=== PATIENT | female | born 1990 | race Caucasian/White ===

== ENCOUNTER 2017-06-24 12:22 | Inpatient (IN) | payer BC ==
[2017-06-24] MEDS ORDERED: Nalbuphine 20 MG/1 ML Amp IVPUSH PRN (12:58)
[2017-06-24] MEDS ORDERED: Ondansetron 4 MG/2 ML SDV IVPUSH PRN ×2 (12:58→13:20)
[2017-06-24] MEDS ORDERED: Sodium Chloride 0.9% 10 ML Syringe FLUSH PRN (12:58)
[2017-06-24] MEDS ORDERED: Oxytocin/Lactated Ringers 10 UNIT/1,000 ML BAG IV SCH ×2 (13:00→19:30)
--- NOTE | 2017-06-24 13:03 | PCM.LDHP ---
L&D History of Present Illness - General Date of Service: 06/24/17 Admit Problem/Dx: Patient Status Order with Admit Dx/Problem 06/24/17 12:58 Patient Status [ADT] Routine Admission Diagnosis/Problem Admission Diagnosis/Problem Spontaneous rupture of amniotic membranes Source of Information: Patient History Limitations: Reports: No Limitations - History of Present Illness Introduction:: Patient is a 27 y/o at 40 0/7 wks who presents for concerns of SROM. Occurred at about 0900 this AM. Doing well. Feeling some contractions. - Related Data Allergies/Adverse Reactions: Allergies Allergy/AdvReac Type Severity Reaction Status Date / Time No Known Allergies Allergy Verified 06/24/17 15:01 Home Medications: Home Meds Prenat Vit Comb.10/Iron/Fa/Dha [Vitafol-OB + DHA] 1 tab PO DAILY 06/24/17 [ History] Past Medical History - Past Health History Medical/Surgical History: Denies Medical/Surgical History [employer] History: Reports: : 2 Para: 1 LMP (Approximate): Social & Family History - Tobacco Use Smoking Status *Q: Never Smoker - Alcohol Use Alcohol Use History: No - Recreational Drug Use Recreational Drug Use: No H&P Review of Systems - Review of Systems: Review Of Systems: See Below General: Reports: No Symptoms Pulmonary: Reports: No Symptoms Cardiovascular: Reports: No Symptoms Gastrointestinal: Reports: No Symptoms Genitourinary: Reports: No Symptoms Musculoskeletal: Reports: No Symptoms Neurological: Reports: No Symptoms L&D Exam - Exam Exam: See Below - OB Specific Contraction Intensity: Moderate Movement: Active Heart Tones: Present Heart Tones per Min: 150 Heart Rate (FHR) Variability: Moderate (6-25 bmp) Presentation: Vertex - Augustin Score Augustin Score Cervix Position: Midposition Augustin Score Consistency: Soft Augustin Score Effacement: >80% Augustin Score Dilation: > 5 cm Augustin Score Infant's Station: -1 ,0 Augustin Score Total: 11 - Exam General: Alert, Oriented, Cooperative Lungs: Clear to Auscultation, Normal Respiratory Effort Cardiovascular: Regular Rate, Regular Rhythm GI/Abdominal Exam: Soft, Non-Tender Genitourinary: Normal external exam Extremities: Normal Inspection Skin: Warm, Dry, Intact - Patient Data Result Diagrams: 06/24/17 12:50 - Problem List (1) 40 weeks gestation of SNOMED Code(s): 30465998 ICD Code: Z3A.40 - 40 WEEKS GESTATION OF Status: Acute Current Visit: Yes (2) Spontaneous rupture of amniotic membranes SNOMED Code(s): 264094345 ICD Code: [id number] - Status: Acute Current Visit: Yes (3) Rh negative state in antepartum period SNOMED Code(s): 993802964 ICD Code: O09.899 - SUPERVISION OF OTHER HIGH RISK PREGNANCIES, UNSP TRIMESTER Status: Acute Current Visit: Yes Problem List Initiated/Reviewed/Updated: Yes Orders Last 24hrs: Active Orders 24 hr Category Date Time Status Patient Status [ADT] Routine ADT 06/24/17 12:58 Ordered Activity as Tolerated [RC] PFP Care 06/24/17 12:58 Ordered Communication Order [RC] ASDIRECTED Care 06/24/17 12:58 Ordered Heart Tones [RC] ASDIRECTED Care 06/24/17 13:00 Ordered Notify Provider [RC] PFP Care 06/24/17 12:58 Ordered Notify Provider [RC] PRN Care 06/24/17 12:58 Ordered Peripheral IV Care [RC] . DIRECTED Care 06/24/17 13:00 Ordered Vital Signs [RC] PER UNIT ROUTINE Care 06/24/17 12:58 Ordered Regular Diet [DIET] Diet 06/24/17 Lunch Ordered CBC W/O DIFF,HEMOGRAM [HEME] Routine Lab 06/24/17 12:58 Ordered TYPE AND SCREEN [BBK] Routine Lab 06/24/17 12:58 Ordered Lactated Ringers [Ringers, Lactated] 1,000 ml Med 06/24/17 13:00 Ordered IV ASDIRECTED Nalbuphine [Nubain] Med 06/24/17 12:58 Ordered 10 mg IVPUSH Q2H PRN Ondansetron [Zofran] Med 06/24/17 12:58 Ordered 4 mg IVPUSH Q4H PRN Oxytocin/Lactated Ringers [Pitocin in LR 10 Units/1,000 Med 06/24/17 13:00 Ordered ML] 10 unit in 1,000 ml IV .CONTINUOUS Sodium Chloride 0.9% [Saline Flush] Med 06/24/17 12:58 Ordered 10 ml FLUSH ASDIRECTED PRN Electronic Heart Tones Ext w TOCO [WOMSER] Oth 06/24/17 12:58 Ordered Routine Electronic Heart Tones Internal [WOMSER] Per Unit Oth 06/24/17 12:58 Ordered Routine Peripheral IV Insertion Adult [OM.PC] Routine Oth 06/24/17 12:58 Ordered Resuscitation Status Routine Resus Stat 06/24/17 12:58 Ordered Medication Orders Lactated Ringer's (Ringers, Lactated) 1,000 mls @ 100 mls/hr IV ASDIRECTED CASS Oxytocin/Lactated Ringer's (Pitocin In Lr 10 Units/1,000 Ml) 10 unit in 1,000 mls @ 500 mls/hr IV .CONTINUOUS CASS Nalbuphine HCl (Nubain) 10 mg IVPUSH Q2H PRN PRN Reason: Pain (moderate 4-6) Ondansetron HCl (Zofran) 4 mg IVPUSH Q4H PRN PRN Reason: Nausea/Vomiting Sodium Chloride (Saline Flush) 10 ml FLUSH ASDIRECTED PRN PRN Reason: Keep Vein Open Assessment/Plan Comment:: 27 y/o at 40 0/7 wks who presents with SROM * CBC and T&S * GBS negative, no need for antibiotics * Continue expectant management. Can add in pitocin if needed. * Pain management per patient preference * Anticipate
--- NOTE | 2017-06-24 13:11 | PCM.PREANE ---
Preanesthetic Assessment - Procedure Proposed Procedure: Labor epidural - Anesthesia/Transfusion/Family Hx Anesthesia History: Prior Anesthesia Without Reaction Family History of Anesthesia Reaction: No Transfusion History: No Prior Transfusion(s) - Review of Systems General: No Symptoms Pulmonary: No Symptoms Cardiovascular: No Symptoms Gastrointestinal: Other (GERD with ) Neurological: No Symptoms Other: Reports: None - Physical Assessment NPO Status Date: 06/24/17 NPO Status Time: 12:00 Pulse: 84 O2 Sat by Pulse Oximetry: 98 Respiratory Rate: 22 Blood Pressure: 121/76 Temperature: 36.9 C Height: 1.6 m Weight: 63.321 kg ASA Class: 2 Mental Status: Alert & Oriented x3 Airway Class: Mallampati = 1 Dentition: Reports: Normal Dentition Thyro-Mental Finger Breadths: 3 ROM/Head Extension: Full Lungs: Clear to Auscultation, Normal Respiratory Effort Cardiovascular: Regular Rate, Regular Rhythm, Murmurs (faint systolic murmer ) - Blood Blood Available: No Product(s) Available: None - Anesthesia Plan Pre-Op Medication Ordered: None - Acknowledgements Anesthesia Type Planned: Epidural Pt an Appropriate Candidate for the Planned Anesthesia: Yes Alternatives and Risks of Anesthesia Discussed w Pt/Guardian: Yes Pt/Guardian Understands and Agrees with Anesthesia Plan: Yes PreAnesthesia Questionnaire - CURRENT (IN HOUSE) MEDS Current Meds: Current Medications Lactated Ringer's (Ringers, Lactated) 1,000 mls @ 100 mls/hr IV ASDIRECTED CASS Oxytocin/Lactated Ringer's (Pitocin In Lr 10 Units/1,000 Ml) 10 unit in 1,000 mls @ 500 mls/hr IV .CONTINUOUS CASS Nalbuphine HCl (Nubain) 10 mg IVPUSH Q2H PRN PRN Reason: Pain (moderate 4-6) Ondansetron HCl (Zofran) 4 mg IVPUSH Q4H PRN PRN Reason: Nausea/Vomiting Sodium Chloride (Saline Flush) 10 ml FLUSH ASDIRECTED PRN PRN Reason: Keep Vein Open
[2017-06-24] MEDS ORDERED: diphenhydrAMINE 50 MG/ML SDV IVPUSH PRN (13:20)
[2017-06-24] MEDS ORDERED: ePHEDrine 50 MG/ML SDV IVPUSH PRN (13:20)
[2017-06-24] MEDS ORDERED: fentaNYL 100 MCG/2 ML SDV EPIDUR PRN (13:20)
[2017-06-24] MEDS ORDERED: Bupivacaine/fentaNYL/NS 100 ML Bag EPIDUR SCH (13:30)
[2017-06-24] MEDS: Lactated Ringers 1,000 ML IV SCH ×2 (20:11→21:24)
--- NOTE | 2017-06-25 00:10 | PCM.DEL ---
L & D Note - General Info Date of Service: 06/25/17 - Delivery Note Labor: Augmented by Oxytocin Delivery Outcome: Livebirth Delivery Method: Spontaneous Vaginal Delivery-Single Delivery Mode: Spontaneous Presentation: Right Occiput Anterior (CARLINE) Nuchal Cord: None Anesthesia Type: Epidural Amniotic Fluid Description: Clear Episiotomy Type: None Laceration: None Placenta: Intact, Spontaneous Cord: 3 Vessels Estimated Blood Loss: 200 Resuscitation Needed: Yes : Bulb Syringe, Stimulated, Warmed, [place] Used, Warmer Used Score 1 min: 8 Score 5 min: 9 Delivery Comments (Free Text/Narrative):: Patient found to be complete and began pushing. With maternal pushing effort head delivered from an CARLINE presentation. No nuchal cord present. shoulders did not immediately deliver after head emerged. Patient legs placed in deeper Clarence and head still did not delivery. McRobert's then done again and a hand placed on the posterior shoulder and clockwise pressure placed resulting in anterior shoulder rotating out from under the pubic bone. Delivery occurred. Cord clamped and cut. Baby handed to nursing staff for assessment. Cord blood obtained. Placenta allowed time to separate and expelled. Inspection of the perineum showed no lacerations. - Patient Data Vitals - Most Recent: Last Vital Signs Temp 36.9 C 06/24/17 13:12 Pulse 84 06/24/17 13:12 Resp 22 H 06/24/17 13:12 BP 121/76 06/24/17 13:12 Pulse Ox 98 06/24/17 13:12 Weight - Most Recent: 63.321 kg I&O - Last 24 Hours: Intake & Output 06/24/17 06/24/17 06/25/17 14:59 22:59 06:59 Intake Total 1000 Balance 1000 Lab Results Last 24 Hours: Laboratory Results - last 24 hr 06/24/17 06/24/17 Range/Units 12:50 12:50 WBC 15.10 H (3.98-10.04) K/mm3 RBC 3.94 L (3.98-5.22) M/mm3 Hgb 12.7 (11.2-15.7) gm/L Hct 36.6 (34.1-44.9) % MCV 92.9 (79.4-94.8) fl MCH 32.2 (25.6-32.2) pg MCHC 34.7 (32.2-35.5) g/dl RDW Std Deviation 44.9 (36.4-46.3) fL Plt Count 165 L (182-369) K/mm3 MPV 11.4 (9.4-12.3) fl Blood Type A NEGATIVE Gel Antibody Screen Negative Med Orders - Current: Current Medications Diphenhydramine HCl (Benadryl) 25 mg IVPUSH Q6H PRN PRN Reason: Pruritis Ephedrine Sulfate (Ephedrine Sulfate) 5 mg IVPUSH ASDIRECTED PRN PRN Reason: Hypotension Fentanyl (Sublimaze) 100 mcg EPIDUR Q3H PRN PRN Reason: Pain Last Admin: 06/24/17 21:29 Dose: 100 mcg Fentanyl/Bupivacaine HCl (Fentanyl/Bupivacaine/Ns 2 Mcg-0.125% 100 Ml) 100 ml EPIDUR ASDIRECTED CASS Last Admin: 06/24/17 21:29 Dose: 100 ml Lactated Ringer's (Ringers, Lactated) 1,000 mls @ 100 mls/hr IV ASDIRECTED CASS Last Admin: 06/24/17 21:24 Dose: 100 mls/hr Oxytocin/Lactated Ringer's (Pitocin In Lr 10 Units/1,000 Ml) 10 unit in 1,000 mls @ 500 mls/hr IV .CONTINUOUS CASS Oxytocin/Lactated Ringer's (Pitocin In Lr 10 Units/1,000 Ml) 10 unit in 1,000 mls @ 12 mls/hr IV TITRATE CASS; 2 MUNITS/MIN PRN Reason: Protocol Last Titration: 06/24/17 22:55 Dose: 9 munits/min, 54 mls/hr Nalbuphine HCl (Nubain) 10 mg IVPUSH Q2H PRN PRN Reason: Pain (moderate 4-6) Ondansetron HCl (Zofran) 4 mg IVPUSH Q4H PRN PRN Reason: Nausea/Vomiting Ondansetron HCl (Zofran) 4 mg IVPUSH ONETIME PRN PRN Reason: Nausea/Vomiting Sodium Chloride (Saline Flush) 10 ml FLUSH ASDIRECTED PRN PRN Reason: Keep Vein Open - Problem List & Annotations (1) 40 weeks gestation of SNOMED Code(s): 69957165 Code(s): Z3A.40 - 40 WEEKS GESTATION OF Status: Acute Current Visit: Yes (2) Spontaneous rupture of amniotic membranes SNOMED Code(s): 989164068 Code(s): KKQ1358 - Status: Acute Current Visit: Yes (3) Rh negative state in antepartum period SNOMED Code(s): 317003440 Code(s): O09.899 - SUPERVISION OF OTHER HIGH RISK PREGNANCIES, UNSP TRIMESTER Status: Acute Current Visit: Yes (4) Shoulder dystocia, delivered SNOMED Code(s): 757201804 Code(s): O66.0 - OBSTRUCTED LABOR DUE TO SHOULDER DYSTOCIA Status: Acute Current Visit: Yes (5) Vaginal delivery SNOMED Code(s): 271421958 Code(s): O80 - ENCOUNTER FOR FULL-TERM UNCOMPLICATED DELIVERY Status: Acute Current Visit: Yes - Problem List Review Problem List Initiated/Reviewed/Updated: Yes - My Orders Last 24 Hours: My Active Orders 06/24/17 12:58 Patient Status [ADT] Routine Activity as Tolerated [RC] PFP Communication Order [RC] ASDIRECTED Notify Provider [RC] PFP Notify Provider [RC] PRN Vital Signs [RC] 04,12,20 Nalbuphine [Nubain] 10 mg IVPUSH Q2H PRN Ondansetron [Zofran] 4 mg IVPUSH Q4H PRN Sodium Chloride 0.9% [Saline Flush] 10 ml FLUSH ASDIRECTED PRN Electronic Heart Tones Ext w TOCO [WOMSER] Routine Electronic Heart Tones Internal [WOMSER] Per Unit Routine Peripheral IV Insertion Adult [OM.PC] Routine Resuscitation Status Routine 06/24/17 13:00 Lactated Ringers [Ringers, Lactated] 1,000 ml IV ASDIRECTED Oxytocin/Lactated Ringers [Pitocin in LR 10 Units/1,000 ML] 10 unit in 1,000 ml IV .CONTINUOUS 06/24/17 19:30 Oxytocin/Lactated Ringers [Pitocin in LR 10 Units/1,000 ML] 10 unit in 1,000 ml IV TITRATE 06/24/17 23:39 Urinary Catheter Assessment [RC] ASDIRECTED 06/24/17 23:45 Insert Urinary Catheter [OM.PC] Q24H 06/24/17 Lunch Regular Diet [DIET] - Assessment Assessment:: 27 y/o G2 now P2002 now PPD#0 from at 40 1/ wks - Plan Plan:: * Routine cares * Encourage breast feeding * Discharge home in 1-2 days
[2017-06-25] MEDS ORDERED: Acetaminophen 325 MG Tab PO PRN (00:40)
[2017-06-25] MEDS ORDERED: Benzocaine/Menthol 20%-0.5% Spray 56 GM Canister TOP PRN (00:40)
[2017-06-25] MEDS ORDERED: Docusate Sodium 100 MG Cap PO PRN (00:40)
[2017-06-25] MEDS ORDERED: Witch Hazel Medicated Pads 100/Jar TOP PRN (00:40)
[2017-06-25] MEDS ORDERED: Lanolin 100% Cream 7 GM Tube TOP PRN (00:40)
--- NOTE | 2017-06-25 09:06 | PCM48HPAN ---
Post Anesthesia Note - EVALUATION WITHIN 48HRS OF ANESTHETIC Vital Signs in Normal Range: Yes Patient Participated in Evaluation: Yes Respiratory Function Stable: Yes Airway Patent: Yes Cardiovascular Function Stable: Yes Hydration Status Stable: Yes Pain Control Satisfactory: Yes Nausea and Vomiting Control Satisfactory: Yes Mental Status Recovered: Yes - COMMENTS/OBSERVATIONS Free Text/Narrative:: Nicolette has been up ambulating today. Denies any back pain and/or numbness and tingling. Denies headache. No further questions at this time.
[2017-06-25] MEDS: Ibuprofen 600 MG Tab PO PRN ×2 (10:00→23:33)
[2017-06-25] MEDS ORDERED: Bupivacaine 0.25% 10 ML SDV ONE (22:22)
--- NOTE | 2017-06-26 04:33 | PCM.PNPP ---
- General Info Date of Service: 06/26/17 Functional Status: Reports: Pain Controlled, Tolerating Diet, Ambulating, Urinating - Review of Systems General: Reports: No Symptoms Pulmonary: Reports: No Symptoms Cardiovascular: Reports: No Symptoms Gastrointestinal: Reports: No Symptoms Genitourinary: Reports: No Symptoms - Patient Data Vital Signs - Most Recent: Last Vital Signs Temp 36.6 C 06/25/17 20:20 Pulse 76 06/25/17 20:00 Resp 16 06/25/17 20:20 BP 101/57 L 06/25/17 20:20 Pulse Ox 100 06/25/17 20:00 Weight - Most Recent: 63.321 kg I&O - Last 24 Hours: Intake & Output 06/25/17 06/25/17 06/26/17 14:59 22:59 06:59 Intake Total 181 Balance 181 Lab Results - Last 24 Hours: Laboratory Results - last 24 hr 06/25/17 Range/Units 06:05 Blood Type Cancelled Gel Antibody Screen Cancelled Screen 1 ros/5 flds - neg RhIG Candidate? Yes Rhogam Indicated Cancelled Med Orders - Current: Current Medications Acetaminophen (Tylenol) 650 mg PO Q4H PRN PRN Reason: mild pain or fever Benzocaine/Menthol (Dermoplast Pain Relief [place]) 0 gm TOP ASDIRECTED PRN PRN Reason: Perineal Comfort Measure Last Admin: 06/25/17 02:24 Dose: 1 applic Docusate Sodium (Colace) 100 mg PO BID PRN PRN Reason: Constipation Emollient Ointment (Lansinoh Hpa) 0 gm TOP ASDIRECTED PRN PRN Reason: Sore Nipples Last Admin: 06/25/17 05:45 Dose: 1 applic Ibuprofen (Motrin) 600 mg PO Q6H PRN PRN Reason: Mild pain or fever Last Admin: 06/25/17 23:33 Dose: 600 mg Witch Digna (Tucks) 1 pad TOP ASDIRECTED PRN PRN Reason: Hemorrhoid pain Last Admin: 06/25/17 02:24 Dose: 1 applic Discontinued Medications Bupivacaine HCl (Sensorcaine-Mpf 0.25%) 10 ml .ROUTE .STK-MED ONE Stop: 06/25/17 22:23 Diphenhydramine HCl (Benadryl) 25 mg IVPUSH Q6H PRN PRN Reason: Pruritis Ephedrine Sulfate (Ephedrine Sulfate) 5 mg IVPUSH ASDIRECTED PRN PRN Reason: Hypotension Fentanyl (Sublimaze) 100 mcg EPIDUR Q3H PRN PRN Reason: Pain Last Admin: 06/24/17 21:29 Dose: 100 mcg Fentanyl/Bupivacaine HCl (Fentanyl/Bupivacaine/Ns 2 Mcg-0.125% 100 Ml) 100 ml EPIDUR ASDIRECTED CASS Last Admin: 06/24/17 21:29 Dose: 100 ml Lactated Ringer's (Ringers, Lactated) 1,000 mls @ 100 mls/hr IV ASDIRECTED CASS Last Admin: 06/24/17 21:24 Dose: 100 mls/hr Oxytocin/Lactated Ringer's (Pitocin In Lr 10 Units/1,000 Ml) 10 unit in 1,000 mls @ 500 mls/hr IV .CONTINUOUS CASS Oxytocin/Lactated Ringer's (Pitocin In Lr 10 Units/1,000 Ml) 10 unit in 1,000 mls @ 12 mls/hr IV TITRATE CASS; 2 MUNITS/MIN PRN Reason: Protocol Last Titration: 06/24/17 22:55 Dose: 9 munits/min, 54 mls/hr Nalbuphine HCl (Nubain) 10 mg IVPUSH Q2H PRN PRN Reason: Pain (moderate 4-6) Ondansetron HCl (Zofran) 4 mg IVPUSH Q4H PRN PRN Reason: Nausea/Vomiting Ondansetron HCl (Zofran) 4 mg IVPUSH ONETIME PRN PRN Reason: Nausea/Vomiting Sodium Chloride (Saline Flush) 10 ml FLUSH ASDIRECTED PRN PRN Reason: Keep Vein Open - Interaction Infant Disposition, : in Room with Family Infant Interaction: Holding Feeding: Breastfed Infant; Nursed Well, Continues to Breastfeed Support Person: - Recovery Exam Fundal Tone: Firm Fundal Level: 1 Fingerbreadths Below Umbilicus Fundal Placement: Midline Lochia Amount: Small Lochia Color: Rubra/Red Perineum Description: Intact, Minimal Bruising/Swelling Bladder Status: Voiding Urinary Elimination: Voided - Exam General: Alert, Oriented, Cooperative GI/Abdominal Exam: Soft, Non-Tender Extremities: Normal Inspection Skin: Warm, Dry, Intact - Problem List & Annotations (1) 40 weeks gestation of SNOMED Code(s): 56086698 Code(s): Z3A.40 - 40 WEEKS GESTATION OF Status: Acute Current Visit: Yes (2) Spontaneous rupture of amniotic membranes SNOMED Code(s): 302753166 Code(s): OUY5542 - Status: Acute Current Visit: Yes (3) Rh negative state in antepartum period SNOMED Code(s): 547460741 Code(s): O09.899 - SUPERVISION OF OTHER HIGH RISK PREGNANCIES, UNSP TRIMESTER Status: Acute Current Visit: Yes (4) Shoulder dystocia, delivered SNOMED Code(s): 879729675 Code(s): O66.0 - OBSTRUCTED LABOR DUE TO SHOULDER DYSTOCIA Status: Acute Current Visit: Yes (5) Vaginal delivery SNOMED Code(s): 785770030 Code(s): O80 - ENCOUNTER FOR FULL-TERM UNCOMPLICATED DELIVERY Status: Acute Current Visit: Yes - Problem List Review Problem List Initiated/Reviewed/Updated: Yes - My Orders Last 24 Hours: My Active Orders 06/25/17 Breakfast Regular Diet [DIET] 06/26/17 00:40 Heat Therapy [OM.PC] PRN - Assessment Assessment:: 27 y/o G2 now P2002 now PPD#1 from at 40 1/7 wks - Plan Plan:: * Routine cares * Encourage breast feeding * Discharge home today
--- NOTE | 2017-06-26 04:34 | PCM.DCSUM1 ---
Discharge Summary - Discharge Data Discharge Date: 06/26/17 Discharge Disposition: Home, Self-Care 01 Condition: Good - Discharge Diagnosis/Problem(s) (1) 40 weeks gestation of SNOMED Code(s): 60323088 ICD Code: Z3A.40 - 40 WEEKS GESTATION OF Status: Acute Current Visit: Yes (2) Spontaneous rupture of amniotic membranes SNOMED Code(s): 599413861 ICD Code: NSR5397 - Status: Acute Current Visit: Yes (3) Rh negative state in antepartum period SNOMED Code(s): 841152637 ICD Code: O09.899 - SUPERVISION OF OTHER HIGH RISK PREGNANCIES, UNSP TRIMESTER Status: Acute Current Visit: Yes (4) Shoulder dystocia, delivered SNOMED Code(s): 685912947 ICD Code: O66.0 - OBSTRUCTED LABOR DUE TO SHOULDER DYSTOCIA Status: Acute Current Visit: Yes (5) Vaginal delivery SNOMED Code(s): 424007570 ICD Code: O80 - ENCOUNTER FOR FULL-TERM UNCOMPLICATED DELIVERY Status: Acute Current Visit: Yes - Patient Summary/Data Complications: None Consults: None Recommended Follow-up Testing/Procedures: Follow up in 2-6 weeks for check Hospital Course: 27 y/o presented at 40 0/7 wks with SROM. She did require augmentation with pitocin. She progressed quickly then to complete dilation and underwent an notable for a short shoulder dystocia resolved mostly with McRobert's. See delivery note. she did well and was discharged home on PPD#1 - Patient Instructions Diet: Regular Diet as Tolerated Activity: As Tolerated Activity, Other: Pelvic Rest for 6 weeks Driving: May Drive Today Showering/Bathing: May Shower Showering/Bathing, Other: May Bathe Notify Provider of: Fever, Increased Pain, Swelling and Redness, Drainage, Nausea and/or Vomiting - Discharge Plan Home Medications: Home Meds Prenat Vit Comb.10/Iron/Fa/Dha [Vitafol-OB + DHA] 1 tab PO DAILY 06/24/17 [ History] Ibuprofen [IJD: Ibuprofen] 600 mg PO Q6H PRN tablet 06/25/17 [Rx] Referrals: Michelle Molina MD [Primary Care Provider] - (2-6 weeks for check ) - Discharge Summary/Plan Comment DC Time >30 min.: No - Patient Data Vitals - Most Recent: Last Vital Signs Temp 36.6 C 06/25/17 20:20 Pulse 76 06/25/17 20:00 Resp 16 06/25/17 20:20 BP 101/57 L 06/25/17 20:20 Pulse Ox 100 06/25/17 20:00 Weight - Most Recent: 63.321 kg I&O - Last 24 hours: Intake & Output 06/25/17 06/25/17 06/26/17 14:59 22:59 06:59 Intake Total 181 Balance 181 Lab Results - Last 24 hrs: Laboratory Results - last 24 hr 06/25/17 Range/Units 06:05 Blood Type Cancelled Gel Antibody Screen Cancelled Screen 1 ros/5 flds - neg RhIG Candidate? Yes Rhogam Indicated Cancelled Med Orders - Current: Current Medications Acetaminophen (Tylenol) 650 mg PO Q4H PRN PRN Reason: mild pain or fever Benzocaine/Menthol (Dermoplast Pain Relief [place]) 0 gm TOP ASDIRECTED PRN PRN Reason: Perineal Comfort Measure Last Admin: 06/25/17 02:24 Dose: 1 applic Docusate Sodium (Colace) 100 mg PO BID PRN PRN Reason: Constipation Emollient Ointment (Lansinoh Hpa) 0 gm TOP ASDIRECTED PRN PRN Reason: Sore Nipples Last Admin: 06/25/17 05:45 Dose: 1 applic Ibuprofen (Motrin) 600 mg PO Q6H PRN PRN Reason: Mild pain or fever Last Admin: 06/25/17 23:33 Dose: 600 mg Witch Digna (Tucks) 1 pad TOP ASDIRECTED PRN PRN Reason: Hemorrhoid pain Last Admin: 06/25/17 02:24 Dose: 1 applic Discontinued Medications Bupivacaine HCl (Sensorcaine-Mpf 0.25%) 10 ml .ROUTE .STK-MED ONE Stop: 06/25/17 22:23 Diphenhydramine HCl (Benadryl) 25 mg IVPUSH Q6H PRN PRN Reason: Pruritis Ephedrine Sulfate (Ephedrine Sulfate) 5 mg IVPUSH ASDIRECTED PRN PRN Reason: Hypotension Fentanyl (Sublimaze) 100 mcg EPIDUR Q3H PRN PRN Reason: Pain Last Admin: 06/24/17 21:29 Dose: 100 mcg Fentanyl/Bupivacaine HCl (Fentanyl/Bupivacaine/Ns 2 Mcg-0.125% 100 Ml) 100 ml EPIDUR ASDIRECTED CASS Last Admin: 06/24/17 21:29 Dose: 100 ml Lactated Ringer's (Ringers, Lactated) 1,000 mls @ 100 mls/hr IV ASDIRECTED CASS Last Admin: 06/24/17 21:24 Dose: 100 mls/hr Oxytocin/Lactated Ringer's (Pitocin In Lr 10 Units/1,000 Ml) 10 unit in 1,000 mls @ 500 mls/hr IV .CONTINUOUS CASS Oxytocin/Lactated Ringer's (Pitocin In Lr 10 Units/1,000 Ml) 10 unit in 1,000 mls @ 12 mls/hr IV TITRATE CASS; 2 MUNITS/MIN PRN Reason: Protocol Last Titration: 06/24/17 22:55 Dose: 9 munits/min, 54 mls/hr Nalbuphine HCl (Nubain) 10 mg IVPUSH Q2H PRN PRN Reason: Pain (moderate 4-6) Ondansetron HCl (Zofran) 4 mg IVPUSH Q4H PRN PRN Reason: Nausea/Vomiting Ondansetron HCl (Zofran) 4 mg IVPUSH ONETIME PRN PRN Reason: Nausea/Vomiting Sodium Chloride (Saline Flush) 10 ml FLUSH ASDIRECTED PRN PRN Reason: Keep Vein Open *Q Meaningful Use (DIS) - VTE *Q VTE Criteria *Q: - Stroke *Q Stroke Criteria *Q: - AMI *Q AMI Criteria *Q:
[2017-06-26] MEDS: Ibuprofen 600 MG Tab PO PRN (05:04)
== END 2017-06-26 10:00 | disposition home or self-care (01) | DRG 560 ==
LOC: JD.OB 12:22 → JD.OBCHECK 12:22 → JD.OB 12:58 → JD.MS 06-25 → OBSVTOIN 06-25 → JD.OB 06-25 12:29
PROVIDERS: ADMIT Obstetrics & Gynecology; ATTEND Obstetrics & Gynecology
PROC: 00HU33Z Insertion of Infusion Device into Spinal Canal, Percutaneous Approach (ICD-10-PCS; 2017-06-24)
PROC: 3E0R3BZ Introduction of Anesthetic Agent into Spinal Canal, Percutaneous Approach (ICD-10-PCS; 2017-06-24)
PROC: 10E0XZZ Delivery of Products of Conception, External Approach (ICD-10-PCS; principal; 2017-06-25)
DX: O42.02 Full-term premature rupture of membranes, onset of labor within 24 hours of rupture (principal); Z3A.40 40 weeks gestation of pregnancy; Z37.0 Single live birth; O66.0 Obstructed labor due to shoulder dystocia
CPT/HCPCS: 01967; 36415; 51701; 59409; 85027; 85461; 86850; 86900; 86901; A9270-GY; J2590; J2790; J3010; J7120

== ENCOUNTER 2019-01-09 07:05 | Inpatient (IN) | payer BC ==
[2019-01-09] MEDS ORDERED: Sodium Chloride 0.9% 10 ML Syringe FLUSH PRN (08:04)
[2019-01-09] MEDS ORDERED: Nalbuphine 20 MG/ML 1 ML Syringe IVPUSH PRN (08:04)
[2019-01-09] MEDS ORDERED: Ondansetron 4 MG/2 ML SDV IVPUSH PRN (08:04)
[2019-01-09] MEDS ORDERED: Penicillin G Potassium 5 MILLUNITS in Sodium Chloride 0.9% 100 ML IV SCH (08:15)
[2019-01-09] MEDS ORDERED: Oxytocin/Lactated Ringers 10 UNIT/1,000 ML BAG IV SCH ×2 (08:15)
[2019-01-09] MEDS: Lactated Ringers 1,000 ML IV SCH ×3 (08:51→18:48)
--- NOTE | 2019-01-09 09:59 | PCM.LDHP ---
L&D History of Present Illness - General Date of Service: 01/09/19 Admit Problem/Dx: Patient Status Order with Admit Dx/Problem 01/09/19 08:05 Patient Status [ADT] Routine Admission Diagnosis/Problem Admission Diagnosis/Problem Normal in third trimester Source of Information: Patient History Limitations: Reports: No Limitations - History of Present Illness Introduction:: Patient is a 28 y/o at 40 6/7 wks who presents for IOL for dates. Doing well today. No significant contractions. No other issues - Related Data Allergies/Adverse Reactions: Allergies Allergy/AdvReac Type Severity Reaction Status Date / Time No Known Allergies Allergy Verified 06/24/17 15:01 Home Medications: Home Meds . 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: 2 LMP (Approximate): - Past Surgical History Dermatological Surgical History: Reports: Other (See Below) Social & Family History - Family History Family Medical History: Noncontributory - Tobacco Use Smoking Status *Q: Never Smoker Second Hand Smoke Exposure: No - Caffeine Use Caffeine Use: Reports: None - Alcohol Use Alcohol Use History: No - Recreational Drug Use Recreational Drug Use: No H&P Review of Systems - Review of Systems: Review Of Systems: See Below General: Reports: No Symptoms Pulmonary: Reports: No Symptoms Cardiovascular: Reports: No Symptoms Gastrointestinal: Reports: No Symptoms Genitourinary: Reports: No Symptoms Musculoskeletal: Reports: No Symptoms Psychiatric: Reports: No Symptoms Neurological: Reports: No Symptoms L&D Exam - Exam Exam: See Below - Vital Signs Vital Signs: Last Vital Signs Temp 37.2 C 01/09/19 08:50 Pulse 63 01/09/19 08:50 Resp 16 01/09/19 08:50 BP 114/72 01/09/19 08:50 Pulse Ox Weight: 65.726 kg - OB Specific Contraction Intensity: Irritability Movement: Active Heart Tones: Present Heart Tones per Min: 140 Heart Rate (FHR) Variability: Moderate (6-25 bmp) Presentation: Vertex - Exam General: Alert, Oriented, Cooperative Lungs: Clear to Auscultation, Normal Respiratory Effort Cardiovascular: Regular Rate, Regular Rhythm GI/Abdominal Exam: Soft, Non-Tender Genitourinary: Normal external exam Extremities: Normal Inspection Skin: Warm, Dry, Intact - Patient Data Lab Results Last 24 hrs: Laboratory Results - last 24 hr 01/09/19 01/09/19 Range/Units 08:30 08:30 WBC 11.35 H (3.98-10.04) K/mm3 RBC 4.27 (3.98-5.22) M/mm3 Hgb 13.7 (11.2-15.7) gm/L Hct 40.1 (34.1-44.9) % MCV 93.9 (79.4-94.8) fl MCH 32.1 (25.6-32.2) pg MCHC 34.2 (32.2-35.5) g/dl RDW Std Deviation 45.1 (36.4-46.3) fL Plt Count 137 L (182-369) K/mm3 MPV 11.3 (9.4-12.3) fl Blood Type A NEGATIVE Gel Antibody Screen Negative Result Diagrams: 01/09/19 08:30 - Problem List (1) Postmaturity , 40-42 weeks gestation SNOMED Code(s): 75951608, 940010285 ICD Code: O48.0 - POST-TERM Status: Acute Current Visit: Yes (2) GBS (group B Streptococcus carrier), +RV culture, currently SNOMED Code(s): 1816726496120, 241481233, 2360921964732 ICD Code: O99.820 - STREPTOCOCCUS B CARRIER STATE COMPLICATING Status: Acute Current Visit: Yes (3) Rh negative state in antepartum period SNOMED Code(s): 969984392 ICD Code: O09.899 - SUPERVISION OF OTHER HIGH RISK PREGNANCIES, UNSP TRIMESTER Status: Acute Current Visit: No Problem List Initiated/Reviewed/Updated: Yes Orders Last 24hrs: Active Orders 24 hr Category Date Time Status Patient Status [ADT] Routine ADT 01/09/19 08:05 Active Communication Order [RC] ASDIRECTED Care 01/09/19 08:05 Active Communication Order [RC] ASDIRECTED Care 01/09/19 08:05 Active Communication Order [RC] ASDIRECTED Care 01/09/19 08:05 Active Heart Tones [RC] ASDIRECTED Care 01/09/19 08:05 Active Monitoring [RC] INTERMITTENT Care 01/09/19 08:05 Active Non Stress Test [RC] PER UNIT ROUTINE Care 01/09/19 08:05 Active Notify Provider [RC] ASDIRECTED Care 01/09/19 08:05 Active Notify Provider [RC] PRN Care 01/09/19 08:05 Active Peripheral IV Care [RC] . DIRECTED Care 01/09/19 08:05 Active Up ad Rocio [RC] ASDIRECTED Care 01/09/19 08:05 Active Vaginal Exam [RC] ASDIRECTED Care 01/09/19 08:05 Active Vital Signs [RC] ASDIRECTED Care 01/09/19 08:05 Active Vital Signs [RC] PER UNIT ROUTINE Care 01/09/19 08:05 Active Regular Diet [DIET] Diet 01/09/19 Breakfast Active RAPID PLASMA REAGIN,RPR [CHEM] Routine Lab 01/09/19 08:30 Received Lactated Ringers [Ringers, Lactated] 1,000 ml Med 01/09/19 08:15 Active IV ASDIRECTED Nalbuphine [Nubain] Med 01/09/19 08:04 Active 10 mg IVPUSH Q2H PRN Ondansetron [Zofran] Med 01/09/19 08:04 Active 4 mg IVPUSH Q4H PRN Oxytocin/Lactated Ringers [Pitocin in LR 10 Units/1,000 Med 01/09/19 08:15 Active ML] 10 unit in 1,000 ml IV .CONTINUOUS Oxytocin/Lactated Ringers [Pitocin in LR 10 Units/1,000 Med 01/09/19 08:15 Active ML] 10 unit in 1,000 ml IV TITRATE Penicillin G Potassium [Pfizerpen] 2.5 millunits Med 01/09/19 12:00 Active Sodium Chloride 0.9% [Normal Saline] 100 ml IV Q4H Penicillin G Potassium [Pfizerpen] 5 millunits Med 01/09/19 08:15 Active Sodium Chloride 0.9% [Normal Saline] 100 ml IV ONETIME Sodium Chloride 0.9% [Saline Flush] Med 01/09/19 08:04 Active 10 ml FLUSH ASDIRECTED PRN Electronic Heart Tones Ext w TOCO [WOMSER] Oth 01/09/19 08:05 Ordered Routine Electronic Heart Tones Internal [WOMSER] Per Unit Oth 01/09/19 08:05 Ordered Routine Peripheral IV Insertion Adult [OM.PC] Routine Oth 01/09/19 08:05 Ordered Resuscitation Status Routine Resus Stat 01/09/19 08:04 Ordered Medication Orders Lactated Ringer's (Ringers, Lactated) 1,000 mls @ 40 mls/hr IV ASDIRECTED CASS Last Admin: 01/09/19 08:51 Dose: 40 mls/hr Oxytocin/Lactated Ringer's (Pitocin In Lr 10 Units/1,000 Ml) 10 unit in 1,000 mls @ 12 mls/hr IV TITRATE CASS; Protocol Oxytocin/Lactated Ringer's (Pitocin In Lr 10 Units/1,000 Ml) 10 unit in 1,000 mls @ 500 mls/hr IV .CONTINUOUS CASS Penicillin G Potassium 5 (millunits/ Sodium Chloride) 100 mls @ 55 mls/hr IV ONETIME CASS Last Admin: 01/09/19 08:45 Dose: 100 mls/hr Penicillin G Potassium 2.5 (millunits/ Sodium Chloride) 100 mls @ 55 mls/hr IV Q4H CASS Nalbuphine HCl (Nubain) 10 mg IVPUSH Q2H PRN PRN Reason: pain Ondansetron HCl (Zofran) 4 mg IVPUSH Q4H PRN PRN Reason: Nausea/Vomiting Sodium Chloride (Saline Flush) 10 ml FLUSH ASDIRECTED PRN PRN Reason: Keep Vein Open Assessment/Plan Comment:: 28 y/o at 40 6/7 wks who presents for IOL for dates * Labs * GBS positive, will start PCN for prophylaxis * Pitocin/AROM for IOL * RH negative, will asses need for Rhogam following delivery * Pain management per patient preference * Anticipate
[2019-01-09] MEDS: Penicillin G Potassium 2.5 MILLUNITS in Sodium Chloride 0.9% 100 ML IV SCH ×3 (12:34→20:28)
--- NOTE | 2019-01-09 13:01 | PCM.PNLD ---
Labor Progress Note - VS & Meds Vital Signs: Last Vital Signs Temp 37.2 C 01/09/19 08:50 Pulse 63 01/09/19 08:50 Resp 16 01/09/19 08:50 BP 114/72 01/09/19 08:50 Pulse Ox Active Medications: Current Medications Lactated Ringer's (Ringers, Lactated) 1,000 mls @ 40 mls/hr IV ASDIRECTED CASS Last Admin: 01/09/19 08:51 Dose: 40 mls/hr Oxytocin/Lactated Ringer's (Pitocin In Lr 10 Units/1,000 Ml) 10 unit in 1,000 mls @ 12 mls/hr IV TITRATE CASS; Protocol Last Admin: 01/09/19 11:42 Dose: 2 munits/min, 12 mls/hr Oxytocin/Lactated Ringer's (Pitocin In Lr 10 Units/1,000 Ml) 10 unit in 1,000 mls @ 500 mls/hr IV .CONTINUOUS CASS Penicillin G Potassium 5 (millunits/ Sodium Chloride) 100 mls @ 55 mls/hr IV ONETIME CASS Last Admin: 01/09/19 08:45 Dose: 100 mls/hr Penicillin G Potassium 2.5 (millunits/ Sodium Chloride) 100 mls @ 55 mls/hr IV Q4H CASS Nalbuphine HCl (Nubain) 10 mg IVPUSH Q2H PRN PRN Reason: pain Ondansetron HCl (Zofran) 4 mg IVPUSH Q4H PRN PRN Reason: Nausea/Vomiting Sodium Chloride (Saline Flush) 10 ml FLUSH ASDIRECTED PRN PRN Reason: Keep Vein Open - Uterine Contractions Uterine Monitoring Mode: External [place] Contraction Intensity: Mild to Moderate Uterine Resting Tone: Soft - Monitoring Monitor Mode: External Ultrasound Heart Rate (FHR) Baseline: 140 Heart Rate (FHR) Variability: Moderate (6-25 bmp) Accelerations: Present, 15x15 Decelerations: None Strip Review: Category I - Vaginal Exam Dilation (cm): 2 Effacement (Percent): 75 Station: -2 Cervical Position: Midposition - Labor Progress (Free Text) Labor Progress: Doing well. On 6 of pitoicin. S/p 2 doses of PCN. AROM performed with release of clear fluid. Continue present management.
--- NOTE | 2019-01-09 17:19 | PCM.PNLD ---
Labor Progress Note - VS & Meds Vital Signs: Last Vital Signs Temp 37.2 C 01/09/19 08:50 Pulse 63 01/09/19 08:50 Resp 16 01/09/19 08:50 BP 114/72 01/09/19 08:50 Pulse Ox Active Medications: Current Medications Lactated Ringer's (Ringers, Lactated) 1,000 mls @ 40 mls/hr IV ASDIRECTED CASS Last Admin: 01/09/19 08:51 Dose: 40 mls/hr Oxytocin/Lactated Ringer's (Pitocin In Lr 10 Units/1,000 Ml) 10 unit in 1,000 mls @ 12 mls/hr IV TITRATE CASS; Protocol Last Titration: 01/09/19 12:45 Dose: 6 munits/min, 36 mls/hr Oxytocin/Lactated Ringer's (Pitocin In Lr 10 Units/1,000 Ml) 10 unit in 1,000 mls @ 500 mls/hr IV .CONTINUOUS CASS Penicillin G Potassium 5 (millunits/ Sodium Chloride) 100 mls @ 55 mls/hr IV ONETIME CASS Last Admin: 01/09/19 08:45 Dose: 100 mls/hr Penicillin G Potassium 2.5 (millunits/ Sodium Chloride) 100 mls @ 55 mls/hr IV Q4H CASS Last Admin: 01/09/19 12:34 Dose: 55 mls/hr Nalbuphine HCl (Nubain) 10 mg IVPUSH Q2H PRN PRN Reason: pain Ondansetron HCl (Zofran) 4 mg IVPUSH Q4H PRN PRN Reason: Nausea/Vomiting Sodium Chloride (Saline Flush) 10 ml FLUSH ASDIRECTED PRN PRN Reason: Keep Vein Open - Uterine Contractions Uterine Monitoring Mode: External [place] Contraction Intensity: Moderate Uterine Resting Tone: Soft - Monitoring Monitor Mode: External Ultrasound Heart Rate (FHR) Baseline: 135 Heart Rate (FHR) Variability: Moderate (6-25 bmp) Accelerations: Present, 15x15 Decelerations: None Strip Review: Category I - Vaginal Exam Dilation (cm): 4 Effacement (Percent): 85 Station: 1 Cervical Position: Midposition - Labor Progress (Free Text) Labor Progress: Patient doing well. on 8 of pitocin. Rates contractions as an /. Continue present management.
[2019-01-09] MEDS ORDERED: fentaNYL 100 MCG/2 ML SDV ONE (17:54)
[2019-01-09] MEDS ORDERED: diphenhydrAMINE 50 MG/ML SDV IVPUSH PRN (18:09)
[2019-01-09] MEDS ORDERED: fentaNYL 100 MCG/2 ML SDV EPIDUR PRN (18:09)
[2019-01-09] MEDS ORDERED: ePHEDrine 50 MG/ML SDV IVPUSH PRN (18:09)
[2019-01-09] MEDS ORDERED: fentaNYL/Bupivacaine-NS 2 MCG/ML-0.125%/PF 100 ML Bag EPIDUR PRN (18:09)
--- NOTE | 2019-01-09 18:32 | PCM.PREANE ---
Preanesthetic Assessment - Procedure Proposed Procedure: [place] - Anesthesia/Transfusion/Family Hx Anesthesia History: No Prior Anesthesia Family History of Anesthesia Reaction: No Transfusion History: No Prior Transfusion(s) - Review of Systems General: No Symptoms Pulmonary: No Symptoms Cardiovascular: No Symptoms Gastrointestinal: No Symptoms Neurological: No Symptoms Other: Reports: None - Physical Assessment Respiratory Rate: 16 Vital Signs: Last Vital Signs Temp 98.9 F 01/09/19 08:50 Pulse 63 01/09/19 08:50 Resp 16 01/09/19 08:50 BP 114/72 01/09/19 08:50 Pulse Ox Height: 5 ft 3 in Weight: 65.726 kg ASA Class: 2 Mental Status: Alert & Oriented x3 Airway Class: Mallampati = 1 Dentition: Reports: Normal Dentition Thyro-Mental Finger Breadths: 3 Mouth Opening Finger Breadths: 3 ROM/Head Extension: Full Lungs: Clear to Auscultation, Normal Respiratory Effort Cardiovascular: Regular Rate, Regular Rhythm - Lab Values: Laboratory Last Values WBC 11.35 K/mm3 (3.98-10.04) H 01/09/19 08:30 RBC 4.27 M/mm3 (3.98-5.22) 01/09/19 08:30 Hgb 13.7 gm/L (11.2-15.7) 01/09/19 08:30 Hct 40.1 % (34.1-44.9) 01/09/19 08:30 MCV 93.9 fl (79.4-94.8) 01/09/19 08:30 MCH 32.1 pg (25.6-32.2) 01/09/19 08:30 MCHC 34.2 g/dl (32.2-35.5) 01/09/19 08:30 RDW Std Deviation 45.1 fL (36.4-46.3) 01/09/19 08:30 Plt Count 137 K/mm3 (182-369) L 01/09/19 08:30 MPV 11.3 fl (9.4-12.3) 01/09/19 08:30 Blood Type A NEGATIVE 01/09/19 08:30 Gel Antibody Screen Negative 01/09/19 08:30 - Allergies Allergies/Adverse Reactions: Allergies Allergy/AdvReac Type Severity Reaction Status Date / Time No Known Allergies Allergy Verified 06/24/17 15:01 - Blood Blood Available: No - Acknowledgements Anesthesia Type Planned: Epidural Pt an Appropriate Candidate for the Planned Anesthesia: Yes Alternatives and Risks of Anesthesia Discussed w Pt/Guardian: Yes Pt/Guardian Understands and Agrees with Anesthesia Plan: Yes PreAnesthesia Questionnaire - Past Health History Medical/Surgical History: Denies Medical/Surgical History Cardiovascular History: Reports: None Respiratory History: Reports: None Gastrointestinal History: Reports: None 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 [No Known Home Meds] 01/09/19 [History] - CURRENT (IN HOUSE) MEDS Current Meds: Current Medications Diphenhydramine HCl (Benadryl) 25 mg IVPUSH Q6H PRN PRN Reason: pruritis Ephedrine Sulfate (Ephedrine Sulfate) 5 mg IVPUSH ASDIRECTED PRN PRN Reason: Hypotension Fentanyl (Sublimaze) 100 mcg EPIDUR Q3H PRN PRN Reason: Pain Last Admin: 01/09/19 18:30 Dose: 100 mcg Fentanyl/Bupivacaine HCl (Bztwssuk-Ucmxo-Ml 2 Mcg/Ml-0.125%) 100 ml EPIDUR ONETIME PRN PRN Reason: Pain Last Admin: 01/09/19 18:29 Dose: 100 ml Lactated Ringer's (Ringers, Lactated) 1,000 mls @ 40 mls/hr IV ASDIRECTED CASS Last Admin: 01/09/19 08:51 Dose: 40 mls/hr Oxytocin/Lactated Ringer's (Pitocin In Lr 10 Units/1,000 Ml) 10 unit in 1,000 mls @ 12 mls/hr IV TITRATE CASS; Protocol Last Titration: 01/09/19 12:45 Dose: 6 munits/min, 36 mls/hr Oxytocin/Lactated Ringer's (Pitocin In Lr 10 Units/1,000 Ml) 10 unit in 1,000 mls @ 500 mls/hr IV .CONTINUOUS CASS Penicillin G Potassium 5 (millunits/ Sodium Chloride) 100 mls @ 55 mls/hr IV ONETIME [facility] Last Admin: 01/09/19 08:45 Dose: 100 mls/hr Penicillin G Potassium 2.5 (millunits/ Sodium Chloride) 100 mls @ 55 mls/hr IV Q4H [facility] Last Admin: 01/09/19 12:34 Dose: 55 mls/hr Nalbuphine HCl (Nubain) 10 mg IVPUSH Q2H PRN PRN Reason: pain Ondansetron HCl (Zofran) 4 mg IVPUSH Q4H PRN PRN Reason: Nausea/Vomiting Sodium Chloride (Saline Flush) 10 ml FLUSH ASDIRECTED PRN PRN Reason: Keep Vein Open Discontinued Medications Fentanyl (Sublimaze) Confirm Administered Dose 100 mcg .ROUTE .[facility] Stop: 01/09/19 17:55
--- NOTE | 2019-01-09 21:10 | PCM.DEL ---
L & D Note - General Info Date of Service: 01/09/19 - Delivery Note Labor: Induced by ARM, Induced by Oxytocin Delivery Outcome: Livebirth Infant Delivery Method: Spontaneous Vaginal Delivery-Single Infant Delivery Mode: Spontaneous Presentation: Left Occiput Anterior (DASHA) Nuchal Cord: None Anesthesia Type: Epidural Amniotic Fluid Description: Clear Episiotomy Type: None Laceration: None Placenta: Intact, Spontaneous Cord: 3 Vessels Estimated Blood Loss: 100 : Bulb Syringe, Stimulated, Warmed, [place] Used Delivery Comments (Free Text/Narrative):: Patient found to be complete and began pushing. With maternal pushing effort head delivered from an DASHA presentation. No nuchal cord present. With gentle downward traction the shoulders and body delivered. placed on maternal abdomen. Cord clamped and cut. Cord blood obtained. Placenta allowed time to separate and expelled intact. Inspection of the perineum showed no lacerations - General Info Date of Service: 01/09/19 - Patient Data Vitals - Most Recent: Last Vital Signs Temp 37.2 C 01/09/19 08:50 Pulse 63 01/09/19 08:50 Resp 16 01/09/19 18:32 BP 114/72 01/09/19 08:50 Pulse Ox Weight - Most Recent: 65.726 kg I&O - Last 24 Hours: Intake & Output 01/09/19 01/09/19 01/09/19 06:59 14:59 22:59 Intake Total 4050 Output Total 1100 Balance 2950 Lab Results Last 24 Hours: Laboratory Results - last 24 hr 01/09/19 01/09/19 Range/Units 08:30 08:30 WBC 11.35 H (3.98-10.04) K/mm3 RBC 4.27 (3.98-5.22) M/mm3 Hgb 13.7 (11.2-15.7) gm/L Hct 40.1 (34.1-44.9) % MCV 93.9 (79.4-94.8) fl MCH 32.1 (25.6-32.2) pg MCHC 34.2 (32.2-35.5) g/dl RDW Std Deviation 45.1 (36.4-46.3) fL Plt Count 137 L (182-369) K/mm3 MPV 11.3 (9.4-12.3) fl Blood Type A NEGATIVE Gel Antibody Screen Negative Med Orders - Current: Current Medications Diphenhydramine HCl (Benadryl) 25 mg IVPUSH Q6H PRN PRN Reason: pruritis Ephedrine Sulfate (Ephedrine Sulfate) 5 mg IVPUSH ASDIRECTED PRN PRN Reason: Hypotension Fentanyl (Sublimaze) 100 mcg EPIDUR Q3H PRN PRN Reason: Pain Last Admin: 01/09/19 18:30 Dose: 100 mcg Fentanyl/Bupivacaine HCl (Zhavcyno-Idonl-Nl 2 Mcg/Ml-0.125%) 100 ml EPIDUR ONETIME PRN PRN Reason: Pain Last Admin: 01/09/19 18:29 Dose: 100 ml Lactated Ringer's (Ringers, Lactated) 1,000 mls @ 40 mls/hr IV ASDIRECTED CASS Last Admin: 01/09/19 18:48 Dose: 999 mls/hr Oxytocin/Lactated Ringer's (Pitocin In Lr 10 Units/1,000 Ml) 10 unit in 1,000 mls @ 12 mls/hr IV TITRATE CASS; Protocol Last Titration: 01/09/19 20:56 Dose: 500 mls/hr Oxytocin/Lactated Ringer's (Pitocin In Lr 10 Units/1,000 Ml) 10 unit in 1,000 mls @ 500 mls/hr IV .CONTINUOUS CASS Penicillin G Potassium 5 (millunits/ Sodium Chloride) 100 mls @ 55 mls/hr IV ONETIME CASS Last Admin: 01/09/19 08:45 Dose: 100 mls/hr Penicillin G Potassium 2.5 (millunits/ Sodium Chloride) 100 mls @ 55 mls/hr IV Q4H CASS Last Admin: 01/09/19 20:28 Dose: 55 mls/hr Nalbuphine HCl (Nubain) 10 mg IVPUSH Q2H PRN PRN Reason: pain Ondansetron HCl (Zofran) 4 mg IVPUSH Q4H PRN PRN Reason: Nausea/Vomiting Sodium Chloride (Saline Flush) 10 ml FLUSH ASDIRECTED PRN PRN Reason: Keep Vein Open Discontinued Medications Fentanyl (Sublimaze) Confirm Administered Dose 100 mcg .ROUTE .[facility] ONE Stop: 01/09/19 17:55 Last Admin: 01/09/19 18:45 Dose: Not Given - Problem List & Annotations (1) Postmaturity , 40-42 weeks gestation SNOMED Code(s): 28631730, 277480635 Code(s): O48.0 - POST-TERM Status: Acute Current Visit: Yes (2) GBS (group B Streptococcus carrier), +RV culture, currently SNOMED Code(s): 8864358852868, 960995726, 6247703332945 Code(s): O99.820 - STREPTOCOCCUS B CARRIER STATE COMPLICATING Status: Acute Current Visit: Yes (3) Rh negative state in antepartum period SNOMED Code(s): 923871068 Code(s): O09.899 - SUPERVISION OF OTHER HIGH RISK PREGNANCIES, UNSP TRIMESTER Status: Acute Current Visit: No (4) Vaginal delivery SNOMED Code(s): 927557084 Code(s): O80 - ENCOUNTER FOR FULL-TERM UNCOMPLICATED DELIVERY Status: Acute Current Visit: Yes - Problem List Review Problem List Initiated/Reviewed/Updated: Yes - My Orders Last 24 Hours: My Active Orders 01/09/19 08:04 Nalbuphine [Nubain] 10 mg IVPUSH Q2H PRN Ondansetron [Zofran] 4 mg IVPUSH Q4H PRN Sodium Chloride 0.9% [Saline Flush] 10 ml FLUSH ASDIRECTED PRN Resuscitation Status Routine 01/09/19 08:05 Patient Status [ADT] Routine Communication Order [RC] ASDIRECTED Communication Order [RC] ASDIRECTED Communication Order [RC] ASDIRECTED Heart Tones [RC] ASDIRECTED Monitoring [RC] INTERMITTENT Non Stress Test [RC] PER UNIT ROUTINE Notify Provider [RC] ASDIRECTED Notify Provider [RC] PRN Peripheral IV Care [RC] . DIRECTED Up ad Rocio [RC] ASDIRECTED Vaginal Exam [RC] ASDIRECTED Vital Signs [RC] ASDIRECTED Vital Signs [RC] PER UNIT ROUTINE Electronic Heart Tones Ext w TOCO [WOMSER] Routine Electronic Heart Tones Internal [WOMSER] Per Unit Routine Peripheral IV Insertion Adult [OM.PC] Routine 01/09/19 08:15 Lactated Ringers [Ringers, Lactated] 1,000 ml IV ASDIRECTED Oxytocin/Lactated Ringers [Pitocin in LR 10 Units/1,000 ML] 10 unit in 1,000 ml IV .CONTINUOUS Oxytocin/Lactated Ringers [Pitocin in LR 10 Units/1,000 ML] 10 unit in 1,000 ml IV TITRATE Penicillin G Potassium [Pfizerpen] 5 millunits Sodium Chloride 0.9% [Normal Saline] 100 ml IV ONETIME 01/09/19 08:30 RAPID PLASMA REAGIN,RPR [CHEM] Routine 01/09/19 12:00 Penicillin G Potassium [Pfizerpen] 2.5 millunits Sodium Chloride 0.9% [Normal Saline] 100 ml IV Q4H 01/09/19 21:05 Patient Status Manage Transfer [TRANSFER] Routine 01/09/19 Breakfast Regular Diet [DIET] - Assessment Assessment:: 28 y/o G3 now P3003 PPD#0 from at 40 6/7 wks - Plan Plan:: * Routine cares * Encourage breast feeding * Will assess baby blood type to see if Rhogam required * Discharge home in 1-2 days
[2019-01-09] MEDS ORDERED: Lanolin 100% Cream 7 GM Tube TOP PRN (21:27)
[2019-01-09] MEDS ORDERED: Witch Hazel Medicated Pads 40/Jar TOP PRN (21:27)
[2019-01-09] MEDS ORDERED: Docusate Sodium 100 MG Cap PO PRN (21:27)
[2019-01-09] MEDS ORDERED: Acetaminophen 325 MG Tab PO PRN (21:27)
[2019-01-09] MEDS ORDERED: Oxytocin/Lactated Ringers 10 UNIT/1,000 ML BAG IV ONE (21:43)
[2019-01-10] MEDS: Ibuprofen 600 MG Tab PO PRN ×3 (02:55→19:03)
--- NOTE | 2019-01-10 08:11 | PCM.PNPP ---
- General Info Date of Service: 01/10/19 Functional Status: Reports: Pain Controlled, Tolerating Diet, Ambulating, Urinating - Review of Systems General: Reports: No Symptoms Pulmonary: Reports: No Symptoms Cardiovascular: Reports: No Symptoms Gastrointestinal: Reports: No Symptoms Genitourinary: Reports: No Symptoms Musculoskeletal: Reports: No Symptoms Neurological: Reports: No Symptoms - Patient Data Vital Signs - Most Recent: Last Vital Signs Temp 36.9 C 01/10/19 02:18 Pulse 75 01/10/19 02:18 Resp 16 01/10/19 02:18 BP 110/60 01/10/19 02:18 Pulse Ox 100 01/10/19 02:18 Weight - Most Recent: 65.726 kg I&O - Last 24 Hours: Intake & Output 01/09/19 01/10/19 01/10/19 22:59 06:59 14:59 Intake Total 4050 502 Output Total 1100 Balance 2950 502 Lab Results - Last 24 Hours: Laboratory Results - last 24 hr 01/09/19 01/09/19 01/09/19 Range/Units 08:30 08:30 22:23 WBC 11.35 H (3.98-10.04) K/mm3 RBC 4.27 (3.98-5.22) M/mm3 Hgb 13.7 (11.2-15.7) gm/L Hct 40.1 (34.1-44.9) % MCV 93.9 (79.4-94.8) fl MCH 32.1 (25.6-32.2) pg MCHC 34.2 (32.2-35.5) g/dl RDW Std Deviation 45.1 (36.4-46.3) fL Plt Count 137 L (182-369) K/mm3 MPV 11.3 (9.4-12.3) fl Blood Type A NEGATIVE Cancelled Gel Antibody Screen Negative Cancelled Screen 0 ros/5 flds - neg RhIG Candidate? Yes Rhogam Indicated Cancelled Med Orders - Current: Current Medications Acetaminophen (Tylenol) 650 mg PO Q4H PRN PRN Reason: mild pain or fever Docusate Sodium (Colace) 100 mg PO BID PRN PRN Reason: Constipation Emollient Ointment (Lansinoh Hpa) 0 gm TOP ASDIRECTED PRN PRN Reason: Sore Nipples Ibuprofen (Motrin) 600 mg PO Q6H PRN PRN Reason: Mild pain or fever Last Admin: 01/10/19 08:02 Dose: 600 mg Witch Digna (Tucks) 1 pad TOP ASDIRECTED PRN PRN Reason: Perineal Comfort Measure Last Admin: 01/09/19 22:17 Dose: 1 applic Discontinued Medications Diphenhydramine HCl (Benadryl) 25 mg IVPUSH Q6H PRN PRN Reason: pruritis Ephedrine Sulfate (Ephedrine Sulfate) 5 mg IVPUSH ASDIRECTED PRN PRN Reason: Hypotension Fentanyl (Sublimaze) Confirm Administered Dose 100 mcg .ROUTE .STK-MED ONE Stop: 01/09/19 17:55 Last Admin: 01/09/19 18:45 Dose: Not Given Fentanyl (Sublimaze) 100 mcg EPIDUR Q3H PRN PRN Reason: Pain Last Admin: 01/09/19 18:30 Dose: 100 mcg Fentanyl/Bupivacaine HCl (Pqgysiyz-Oltib-Ob 2 Mcg/Ml-0.125%) 100 ml EPIDUR ONETIME PRN PRN Reason: Pain Last Admin: 01/09/19 18:29 Dose: 100 ml Lactated Ringer's (Ringers, Lactated) 1,000 mls @ 40 mls/hr IV ASDIRECTED CASS Last Admin: 01/09/19 18:48 Dose: 999 mls/hr Oxytocin/Lactated Ringer's (Pitocin In Lr 10 Units/1,000 Ml) 10 unit in 1,000 mls @ 12 mls/hr IV TITRATE CASS; Protocol Last Titration: 01/09/19 20:56 Dose: 500 mls/hr Oxytocin/Lactated Ringer's (Pitocin In Lr 10 Units/1,000 Ml) 10 unit in 1,000 mls @ 500 mls/hr IV .CONTINUOUS CASS Last Admin: 01/09/19 21:53 Dose: 500 mls/hr Penicillin G Potassium 5 (millunits/ Sodium Chloride) 100 mls @ 55 mls/hr IV ONETIME CASS Last Admin: 01/09/19 08:45 Dose: 100 mls/hr Penicillin G Potassium 2.5 (millunits/ Sodium Chloride) 100 mls @ 55 mls/hr IV Q4H CASS Last Admin: 05/04/19 20:28 Dose: 55 mls/hr Oxytocin/Lactated Ringer's (Pitocin In Lr 10 Units/1,000 Ml) Confirm Administered Dose 10 unit in 1,000 mls @ as directed IV .STK-MED ONE Stop: 01/09/19 21:44 Last Admin: 01/09/19 21:52 Dose: Not Given Nalbuphine HCl (Nubain) 10 mg IVPUSH Q2H PRN PRN Reason: pain Ondansetron HCl (Zofran) 4 mg IVPUSH Q4H PRN PRN Reason: Nausea/Vomiting Sodium Chloride (Saline Flush) 10 ml FLUSH ASDIRECTED PRN PRN Reason: Keep Vein Open - Interaction Infant Disposition, : Anza in Room with Family Infant Interaction: Holding Infant Infant Feeding: Breastfed ; Nursed Well Support Person: - Recovery Exam Fundal Tone: Firm Fundal Level: At Umbilicus Fundal Placement: Midline Lochia Amount: Small Lochia Color: Rubra/Red Perineum Description: Intact, Minimal Bruising/Swelling Bladder Status: Voiding Urinary Elimination: Voided - Exam General: Alert, Oriented, Cooperative GI/Abdominal Exam: Soft, Non-Tender Extremities: Normal Inspection Skin: Warm, Dry, Intact - Problem List & Annotations (1) Postmaturity , 40-42 weeks gestation SNOMED Code(s): 43755918, 617401430 Code(s): O48.0 - POST-TERM Status: Acute Current Visit: Yes (2) GBS (group B Streptococcus carrier), +RV culture, currently SNOMED Code(s): 9229065360592, 656703589, 1941383672382 Code(s): O99.820 - STREPTOCOCCUS B CARRIER STATE COMPLICATING Status: Acute Current Visit: Yes (3) Rh negative state in antepartum period SNOMED Code(s): 102042844 Code(s): O09.899 - SUPERVISION OF OTHER HIGH RISK PREGNANCIES, UNSP TRIMESTER Status: Acute Current Visit: No (4) Vaginal delivery SNOMED Code(s): 134545471 Code(s): O80 - ENCOUNTER FOR FULL-TERM UNCOMPLICATED DELIVERY Status: Acute Current Visit: Yes - Problem List Review Problem List Initiated/Reviewed/Updated: Yes - My Orders Last 24 Hours: My Active Orders 01/09/19 08:04 Resuscitation Status Routine 01/09/19 08:05 Heart Tones [RC] ASDIRECTED Monitoring [RC] INTERMITTENT Peripheral IV Care [RC] . DIRECTED Vaginal Exam [RC] ASDIRECTED Vital Signs [RC] ASDIRECTED Vital Signs [RC] PER UNIT ROUTINE 01/09/19 08:30 RAPID PLASMA REAGIN,RPR [CHEM] Routine 01/09/19 21:27 Activity as Tolerated [RC] PER UNIT ROUTINE Vital Signs [RC] 03,09,15,21 Acetaminophen [Tylenol] 650 mg PO Q4H PRN Docusate Sodium [Colace] 100 mg PO BID PRN Ibuprofen [Motrin] 600 mg PO Q6H PRN Lanolin [Lansinoh HPA] See Dose Instructions TOP ASDIRECTED PRN Witch Digna [Tucks] 1 pad TOP ASDIRECTED PRN Assess Lochia [WOMSER] Per Unit Routine Assess Uterine Involution [WOMSER] Per Unit Routine Breast Pump [WOMSER] Per Unit Routine Heat Therapy [OM.PC] PRN Ice Therapy [OM.PC] Per Unit Routine Perineal Care [OM.PC] Per Unit Routine Peripheral IV Discontinue [OM.PC] Routine Sitz Bath [OM.PC] Per Unit Routine 01/09/19 Dinner Regular Diet [DIET] 01/10/19 21:27 Heat Therapy [OM.PC] PRN - Assessment Assessment:: 28 y/o G3 now P3003 PPD#1 from at 40 6/7 wks - Plan Plan:: * Routine cares * Encourage breast feeding * Baby Rh positive, patient received additional Rhogam * Discharge home today vs tomorrow depending upon patient preference
--- NOTE | 2019-01-10 08:57 | PCM48HPAN ---
Post Anesthesia Note - EVALUATION WITHIN 48HRS OF ANESTHETIC Vital Signs in Normal Range: Yes Patient Participated in Evaluation: Yes Respiratory Function Stable: Yes Airway Patent: Yes Cardiovascular Function Stable: Yes Hydration Status Stable: Yes Pain Control Satisfactory: Yes Nausea and Vomiting Control Satisfactory: Yes Mental Status Recovered: Yes Pulse Rate: 55 Resp Rate: 16 Temperature: 98.8 F Blood Pressure: 121/64
--- NOTE | 2019-01-10 10:51 | PCM.DCSUM1 ---
Discharge Summary - Discharge Data Discharge Date: 01/10/19 Discharge Disposition: Home, Self-Care 01 Condition: Good - Discharge Diagnosis/Problem(s) (1) Postmaturity , 40-42 weeks gestation SNOMED Code(s): 99159208, 950948129 ICD Code: O48.0 - POST-TERM Status: Acute Current Visit: Yes (2) GBS (group B Streptococcus carrier), +RV culture, currently SNOMED Code(s): 4898604017403, 659042826, 3041719193453 ICD Code: O99.820 - STREPTOCOCCUS B CARRIER STATE COMPLICATING Status: Acute Current Visit: Yes (3) Rh negative state in antepartum period SNOMED Code(s): 830718928 ICD Code: O09.899 - SUPERVISION OF OTHER HIGH RISK PREGNANCIES, UNSP TRIMESTER Status: Acute Current Visit: No (4) Vaginal delivery SNOMED Code(s): 972864775 ICD Code: O80 - ENCOUNTER FOR FULL-TERM UNCOMPLICATED DELIVERY Status: Acute Current Visit: Yes - Patient Summary/Data Complications: None Consults: None Recommended Follow-up Testing/Procedures: Follow up in 3 weeks for check Hospital Course: 28 y/o at 40 6/7 wks presented for IOL for dates. Done with pitocin and AROM. She progressed well and underwent an uncomplicated . See delivery note. she did well and was discharged home on PPD#1 - Patient Instructions Diet: Regular Diet as Tolerated Activity: As Tolerated Activity, Other: Pelvic rest for 6 weeks Driving: May Drive Today Showering/Bathing: May Shower Showering/Bathing, Other: May bathe Notify Provider of: Fever, Increased Pain, Swelling and Redness, Drainage, Nausea and/or Vomiting - Discharge Plan *PRESCRIPTION DRUG MONITORING PROGRAM REVIEWED*: Not Applicable *COPY OF PRESCRIPTION DRUG MONITORING REPORT IN PATIENT TONJA: Not Applicable Home Medications: Home Meds Docusate Sodium [Colace] 100 mg PO BID PRN cap 01/10/19 [Rx] Ibuprofen [Motrin] 600 mg PO Q6H PRN tablet 01/10/19 [Rx] Referrals: Michelle Molina MD [Primary Care Provider] - (3 weeks for check ) - Discharge Summary/Plan Comment DC Time >30 min.: No - Patient Data Vitals - Most Recent: Last Vital Signs Temp 37.1 C 01/10/19 08:57 Pulse 55 L 01/10/19 08:57 Resp 16 01/10/19 08:57 BP 121/64 01/10/19 08:57 Pulse Ox 97 01/10/19 08:07 Weight - Most Recent: 65.726 kg I&O - Last 24 hours: Intake & Output 01/09/19 01/10/19 01/10/19 22:59 06:59 14:59 Intake Total 4050 502 180 Output Total 1100 Balance 2950 502 180 Lab Results - Last 24 hrs: Laboratory Results - last 24 hr 01/09/19 Range/Units 22:23 Blood Type Cancelled Gel Antibody Screen Cancelled Screen 0 ros/5 flds - neg RhIG Candidate? Yes Rhogam Indicated Cancelled Med Orders - Current: Current Medications Acetaminophen (Tylenol) 650 mg PO Q4H PRN PRN Reason: mild pain or fever Docusate Sodium (Colace) 100 mg PO BID PRN PRN Reason: Constipation Emollient Ointment (Lansinoh Hpa) 0 gm TOP ASDIRECTED PRN PRN Reason: Sore Nipples Ibuprofen (Motrin) 600 mg PO Q6H PRN PRN Reason: Mild pain or fever Last Admin: 01/10/19 08:02 Dose: 600 mg Witch Digna (Tucks) 1 pad TOP ASDIRECTED PRN PRN Reason: Perineal Comfort Measure Last Admin: 01/09/19 22:17 Dose: 1 applic Discontinued Medications Diphenhydramine HCl (Benadryl) 25 mg IVPUSH Q6H PRN PRN Reason: pruritis Ephedrine Sulfate (Ephedrine Sulfate) 5 mg IVPUSH ASDIRECTED PRN PRN Reason: Hypotension Fentanyl (Sublimaze) Confirm Administered Dose 100 mcg .ROUTE .STK-MED ONE Stop: 01/09/19 17:55 Last Admin: 01/09/19 18:45 Dose: Not Given Fentanyl (Sublimaze) 100 mcg EPIDUR Q3H PRN PRN Reason: Pain Last Admin: 01/09/19 18:30 Dose: 100 mcg Fentanyl/Bupivacaine HCl (Kckjquvu-Vfgnj-Rk 2 Mcg/Ml-0.125%) 100 ml EPIDUR ONETIME PRN PRN Reason: Pain Last Admin: 01/09/19 18:29 Dose: 100 ml Lactated Ringer's (Ringers, Lactated) 1,000 mls @ 40 mls/hr IV ASDIRECTED CASS Last Admin: 01/09/19 18:48 Dose: 999 mls/hr Oxytocin/Lactated Ringer's (Pitocin In Lr 10 Units/1,000 Ml) 10 unit in 1,000 mls @ 12 mls/hr IV TITRATE CASS; Protocol Last Titration: 01/09/19 20:56 Dose: 500 mls/hr Oxytocin/Lactated Ringer's (Pitocin In Lr 10 Units/1,000 Ml) 10 unit in 1,000 mls @ 500 mls/hr IV .CONTINUOUS CASS Last Admin: 01/09/19 21:53 Dose: 500 mls/hr Penicillin G Potassium 5 (millunits/ Sodium Chloride) 100 mls @ 55 mls/hr IV ONETIME CASS Last Admin: 01/09/19 08:45 Dose: 100 mls/hr Penicillin G Potassium 2.5 (millunits/ Sodium Chloride) 100 mls @ 55 mls/hr IV Q4H CASS Last Admin: 01/09/19 20:28 Dose: 55 mls/hr Oxytocin/Lactated Ringer's (Pitocin In Lr 10 Units/1,000 Ml) Confirm Administered Dose 10 unit in 1,000 mls @ as directed IV .STK-MED ONE Stop: 01/09/19 21:44 Last Admin: 01/09/19 21:52 Dose: Not Given Nalbuphine HCl (Nubain) 10 mg IVPUSH Q2H PRN PRN Reason: pain Ondansetron HCl (Zofran) 4 mg IVPUSH Q4H PRN PRN Reason: Nausea/Vomiting Sodium Chloride (Saline Flush) 10 ml FLUSH ASDIRECTED PRN PRN Reason: Keep Vein Open
== END 2019-01-10 21:55 | disposition home or self-care (01) | DRG 560 ==
LOC: UNDOADMOB 07:05 → JD.OB 07:05 → OBSVTOIN 20:52 → JD.OB 20:52
PROVIDERS: ADMIT Obstetrics & Gynecology; ATTEND Obstetrics & Gynecology
PROC: 3E033VJ Introduction of Other Hormone into Peripheral Vein, Percutaneous Approach (ICD-10-PCS; principal; 2019-01-09)
PROC: 6A550ZT Pheresis of Cord Blood Stem Cells, Single (ICD-10-PCS; principal; 2019-01-09)
PROC: 10E0XZZ Delivery of Products of Conception, External Approach (ICD-10-PCS; principal; 2019-01-09)
PROC: 10907ZC Drainage of Amniotic Fluid, Therapeutic from Products of Conception, Via Natural or Artificial Opening (ICD-10-PCS; principal; 2019-01-09)
PROC: 00HU33Z Insertion of Infusion Device into Spinal Canal, Percutaneous Approach (ICD-10-PCS; 2019-01-09)
PROC: 3E0R3BZ Introduction of Anesthetic Agent into Spinal Canal, Percutaneous Approach (ICD-10-PCS; 2019-01-09)
PROC: 3E0234Z Introduction of Serum, Toxoid and Vaccine into Muscle, Percutaneous Approach (ICD-10-PCS; 2019-01-10)
DX: O48.0 Post-term pregnancy (principal); Z3A.40 40 weeks gestation of pregnancy; O99.824 Streptococcus B carrier state complicating childbirth; Z37.0 Single live birth; O26.893 Other specified pregnancy related conditions, third trimester; Z67.11 Type A blood, Rh negative
CPT/HCPCS: 36415; 51702; 59025; 59409; 85027; 85461; 86592; 86850; 86900; 86901; A9270-GY; J2540; J2590; J2790; J3010; J7030; J7120